=== PATIENT | male | born 1950 | race Caucasian/White ===

== ENCOUNTER 2021-06-02 21:27 | Emergency (ER) | payer MEDICARE, BC ==
[~2021-06-02] VITALS: Ht 170.2 cm; Wt 95.5 kg
[2021-06-02 21:35] VITALS: TEMP 98
[2021-06-02 21:47] LABS: COLLECTION METHOD CLEAN CATCH
[2021-06-02 21:54] LABS: PH 6 (5-8); SQUAMOUS EPITHELIAL None Seen /hpf (0-10); URINE APPEARANCE Cloudy (CLEAR/HAZY); URINE BACTERIA Rare /hpf (NONE SEEN); URINE BILIRUBIN Negative (NEGATIVE); URINE BLOOD 3+ (NEGATIVE); URINE COLOR Yellow (YELLOW); URINE GLUCOSE Negative (NEGATIVE); URINE KETONE Negative (NEGATIVE); URINE LEUKOCYTE ESTERASE 3+ (NEGATIVE); URINE NITRATE Negative (NEGATIVE); URINE PROTEIN(semi-quant) 1+ (NEGATIVE); URINE RBC >50 /hpf (0-2); URINE UROBILINOGEN Negative (NEGATIVE)
[2021-06-02] MEDS ORDERED: OMNICEF 300MG300 MG PO (22:09)
[2021-06-02 22:29] VITALS: BP 150/80; PULSE 86
== END 2021-06-02 22:29 | disposition home or self-care (01) ==
LOC: COL.ER 21:27
PROVIDERS: Physician Assistant
DX: N30.91 Cystitis, unspecified with hematuria (principal)
CPT/HCPCS: J0696